=== PATIENT | male | born 1960 | race Two or more races ===

== ENCOUNTER 2017-02-03 11:11 | Outpatient (CLI) | payer BC ==
[~2017-02-03] VITALS: Ht 180.3 cm; Wt 76.4 kg
[2017-02-03 11:05] VITALS: BP 111/61; PULSE 52; RESP 16; Ht 180.3 cm; Wt 76.4 kg
[2017-02-03] MEDS ORDERED: ASPI-664 PO (11:28)
--- NOTE | 2017-02-03 12:12 | CONS ---
Date/Time of Note Date/Time of Note DATE: 02/03/17 TIME: 12:04 Assessment/Plan Assessment/Plan Additional Assessment/Plan [facility] INITIAL OUTPATIENT CONSULTATION NOTE DATE OF CONSULTATION: 02/03/2017 PLACE OF SERVICE: [facility] ASSESSMENT AND PLAN: A very-pleasant 56-year-old gentleman with a few relatively minor comorbidities presented with incidentally discovered small fluid collection near the segment 8 between the liver and the diaphragm with no concerning features. I doubt that the abnormality is related to the patient's abdominal pain regions. No evidence of a mass process or any concerning features for malignancy. Recommend ultrasound follow-up in 6-8 months. He did have slight increase in his amylase in the labs done December 2016 which could be related to his alcohol intake. I emphasized with him the importance of exercising caution in high intake of alcohol. Explained to patient in detail and answered multiple questions (no family present during my discussions with the patient). I believe that he understood and agreed with the plans. With above assessment, I've recommended the followin. Right upper quadrant ultrasound in 6-8 months with focused review of area of fluid collection 2. Symptomatic follow-up 3. Consideration for upper endoscopy to further delineate etiology behind abdominal pain 4. Continued efforts at reducing amount of alcohol intake 5. Follow-up with primary care physician, Dr. Watkins 6. Follow-up with Dr. Esther Bird in gastroenterology Thank you very much for having me involved in the care of this very pleasant patient and wonderful family. If you have any questions, please feel free to contact me at [phone]. Nature of presenting problem: Low severity Please note that, given the limited number of diagnoses or management options, the limited amount and/or complexity of data needed to be reviewed, and low risk of complications and/or morbidity or mortality, this qualifies as low complexity type of decision-making. Disclaimer: Inadvertent spelling and grammatical errors are likely due to EHR/ dictation software use and do not reflect on the quality of delivered patient care. Also, please note that the electronic time recorded on this node does not necessarily reflect the actual time of the visit. Updated clinical summary: Very pleasant 56-year-old gentleman with a few minor comorbidities presenting with 2 year history of intermittent right-sided abdominal pain. Comorbidities: 1. Sigmoid polyp, status post colonoscopy 10/28/2015 with removal. Hyperplastic polyp on final pathology with no evidence of dysplasia or malignancy. 2. 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 Hyperlipidemia 4. Allergic rhinitis CONSULTATION REQUESTED BY: Esther Bird MD HISTORY OF PRESENT ILLNESS: The patient is a very pleasant 56-year-old gentleman with relatively few comorbidities whom we were kindly asked to consult regarding management of his newly discovered fluid collection next to his liver between diaphragm in segment 8 as seen on his right upper quadrant ultrasound that was done on 01/17/2017 showing 2.6 x 1.4 x 1 cm curvilinear hypoechoic structure with increased through transmission along the periphery of the right hepatic lobe, consistent with a fluid collection. CT scan of abdomen and pelvis with and without contrast on 01/06/2017 redemonstrated this area which was assessed to be a minimal subcapsular fluid collection associated with the liver with uncertain significance. There also small hepatic cysts 1 of which was reported in the main body of the report as 4 mm cyst within the inferior right lobe of the liver. My own review of the images suggest presence of another 2-3 mm cyst in segment 2 of the liver on the periphery. Patient describes a dull pain that starts in the right lower quadrant of the abdominal cavity with some movement towards the right upper quadrant and then later somewhat going to the flank region, not associated with any nausea or vomiting or fevers or chills. He reports having regular bowel movements and no issues with diarrhea or constipation or blood in the stool or urine. No reported bowel obstruction in the past or abdominal surgeries in the past. Pain discomfort is in the moderate range when it occurs but it happens intermittently and has been noticed for the past 2 years. Unclear as to the frequency but does not appear to be more than once every few weeks. ALLERGIES: NO KNOWN DRUG ALLERGIES MEDICATIONS Documented in the electronic records and reviewed by me. Please see the electronic records for details. SOCIAL HISTORY: The patient lives with family including his 2 children. Works in construction. Occasional Tob; social ETOH (reported drinking on a regular basis up to recently using hard liquor, 1 or 2 shots in the evenings; no reported DUIs; reduced intake after advice from his physicians);-IVDU FAMILY HISTORY: There are no significant medical, surgical or oncologic issues in the family as reported by the patient or reflected in the chart. REVIEW OF SYSTEMS: Other than mentioned above, there were no other pertinent positives or pertinent negatives in an otherwise complete 14 point review of systems. PHYSICAL EXAMINATION GENERAL: The patient appears to be a very pleasant gentleman of [place] descent sitting in a chair, appearing stated age,] and otherwise in no acute distress. BMI: 23.5 VITAL SIGNS: AVSS (please also see auto important data if available as well as the electronic records) HEENT: Normocephalic and atraumatic. Extraocular muscles and hearing are grossly intact bilaterally and symmetrically. Sclerae are nonicteric. Oral cavity is clear; oral mucosa appear to be pink and moist. Dentition: fair. NECK: Supple. There is no lymphadenopathy or JVD. There is no submental, submandibular or supraclavicular lymphadenopathy. CHEST: Rises symmetrically with each breath; patient is breathing comfortably. There are no audible wheezes, rales or rhonchi on the gross exam. HEART: Pulse is regular and palpable on the right wrist. Capillary refill is normal. Carotid pulses are palpable bilaterally and symmetrically in the neck. EXTREMITIES: Lower extremities contain no pitting edema around the ankles bilaterally and symmetrically. ABDOMEN: Abdomen is soft, nontender and nondistended. No evidence of ascites, organomegaly, caput medusae, engorged subcutaneous veins, or other abnormalities. There are no peritoneal signs or guarding. SKIN: Appears to be pink and feels warm to touch. NEUROLOGIC: Awake, alert, and follows commands appropriately. LABORATORY DATA: See below August 2016: 0.08, CO2 26, albumin 4.7, normal liver function and injury parameters, cholesterol 234, hemoglobin A1c 5.2. 12/15: Amylase 98, lipase 38. 01/15/2017: 610, lipase 39. White blood cell count 6.1, hemoglobin 14.6, platelets 249. IMAGING: See electronic chart. Please note that I've personally reviewed all pertinent available images and I agree in general with their overall reported findings. Consultation Date/Type/Reason Admit Date/Time Exam/Review of Systems Vital Signs Vitals Vital Signs Date Time Temp Pulse Resp B/P Pulse Ox O2 Delivery O2 Flow Rate FiO2 02/03/17 11:05 97.7 52 16 111/61 100 Room Air EDUARDO JOHNSON M.D. Feb 03, 2017 12:12
== END 2017-02-03 16:10 | disposition home or self-care (01) ==
LOC: HPC 11:11
PROVIDERS: ATTEND Transplant Surgery
DX: R10.11 Right upper quadrant pain (principal); K63.5 Polyp of colon; M13.862 Other specified arthritis, left knee; M13.822 Other specified arthritis, left elbow; E78.5 Hyperlipidemia, unspecified
CPT/HCPCS: G0463

== ENCOUNTER 2017-10-13 13:08 | Outpatient (CLI) | END 2017-10-13 17:03 | disposition home or self-care (01) ==